=== PATIENT | male | born 1935 | race Caucasian/White ===

== ENCOUNTER 2016-12-16 09:57 | Day surgery (SDC) | payer MEDICARE, OTHER ==
[~2016-12-16] VITALS: Ht 177.8 cm; Wt 83.0 kg
[~2016-12-16 09:57] MED LIST: ASPI-496 PO; CHOL20003 PO; GLUC1TAB27 PO; LISI-170 PO; LISI2.5T PO; MULT-658 PO; OMEG1CAP39 PO; SIMV40TA PO
[2016-12-16] MEDS ORDERED: SUCCINYLCHOLINE 20 MG/ML, 10ML ONE (10:10)
[2016-12-16] MEDS ORDERED: ONDANSETRON 2MG/ML, 2ML ONE ×2 (10:10→15:27)
[2016-12-16] MEDS ORDERED: PROPOFOL 10 MG/ML, 20ML ONE (10:10)
[2016-12-16] MEDS ORDERED: CEFAZOLIN 1,000 MG ONE (10:10)
[2016-12-16] MEDS ORDERED: ROCURONIUM 10 MG/ML ONE (10:10)
[2016-12-16] MEDS ORDERED: METOCLOPRAMIDE 5 MG/ML, 2ML ONE (10:10)
[2016-12-16] MEDS ORDERED: LACTATED RINGERS 1,000 ML IV SCH (10:31)
[2016-12-16 10:32] VITALS: BP 164/79
[2016-12-16] MEDS ORDERED: LIDOCAINE 1%, 2ML SQ PRN (11:00)
[2016-12-16] MEDS ORDERED: FENTANYL PF 100 MCG/2ML ONE ×2 (11:50→13:13)
[2016-12-16] MEDS ORDERED: HYDROmorphone 1 MG/ML, 1ML IV PRN (12:30)
[2016-12-16] MEDS ORDERED: ONDANSETRON 2MG/ML, 2ML IVPush PRN ×2 (12:30→15:30)
[2016-12-16] MEDS ORDERED: FENTANYL PF 100 MCG/2ML IV PRN (12:30)
[2016-12-16] MEDS ORDERED: LABETALOL 5MG/ML, 20ML IV PRN (12:30)
[2016-12-16] MEDS ORDERED: hydrALAzine 20 MG/ML, 1ML IV PRN (12:30)
[2016-12-16] MEDS ORDERED: OXYcodone 5 MG/5 ML ORAL.SOL UDC PO PRN (12:30)
[2016-12-16] MEDS ORDERED: OXYcodone 5 MG/5 ML ORAL.SOL UDC ONE (13:18)
[2016-12-16] MEDS ORDERED: hydrALAzine 20 MG/ML, 1ML ONE (13:23)
[2016-12-16] MEDS ORDERED: LABETALOL 5MG/ML, 20ML ONE (13:46)
[2016-12-16] MEDS ORDERED: OPIUM/BELLADONNA SUPP.RECT 16.2-30 MG ONE (13:56)
[2016-12-16] MEDS ORDERED: OPIUM/BELLADONNA SUPP.RECT 16.2-30 MG PR PRN (14:00)
== END 2016-12-16 16:05 | disposition home or self-care (01) ==
LOC: OUT 09:57
PROVIDERS: ATTEND Urology
DX: C67.2 Malignant neoplasm of lateral wall of bladder (principal); N30.21 Other chronic cystitis with hematuria; N35.9 Urethral stricture, unspecified; I10 Essential (primary) hypertension; E78.5 Hyperlipidemia, unspecified; Z72.89 Other problems related to lifestyle
CPT/HCPCS: 52234; 88305; J0330; J0360; J0690; J2405; J2704; J2765; J3010; J7120